=== PATIENT | male | born 1975 | race Caucasian/White ===

== ENCOUNTER 2020-02-24 13:51 | Emergency (ER) | payer MEDICAID ==
[~2020-02-24] VITALS: Ht 172.7 cm; Wt 66.0 kg
[2020-02-24 14:30] VITALS: BP 108/63
[2020-02-24] MEDS ORDERED: HYDROCODONE/ACETAMINOPHEN 5/325MG TABLET PO ONE (14:30)
== END 2020-02-24 17:32 | disposition home or self-care (01) ==
LOC: ER 13:51
DX: S42.492A Other displaced fracture of lower end of left humerus, initial encounter for closed fracture (principal); E78.00 Pure hypercholesterolemia, unspecified; W01.0XXA Fall on same level from slipping, tripping and stumbling without subsequent striking against object, initial encounter; Y93.9 Activity, unspecified; Y92.9 Unspecified place or not applicable
CPT/HCPCS: 29105; 70486; 73060; 73080; 73090; 99284

== ENCOUNTER 2020-04-07 21:30 | Inpatient (IN) | payer MEDICAID ==
[~2020-04-07] VITALS: Ht 182.9 cm; Wt 70.3 kg
[2020-04-07 23:01] LABS: MEAN CORPUSCULAR HEMOGLOBIN 19.9 pg (28.0-32.0); MEAN CORPUSCULAR VOLUME 65.5 fL (80.0-94.0); MEAN PLATELET VOLUME 8.2 fl (7.4-10.4); PLATELET 182 x1000/uL (130-400); RED BLOOD CELL COUNT 3.16 mill/uL (4.7-6.1); RED CELL DISTRIBUTION WIDTH 20.6 % (11.6-14.6)
[2020-04-07 23:07] LABS: CHLORIDE 103 mEq/L (98-107); HEMOGLOBIN. 6.3 g/dL (14.0-18.0)
[2020-04-07 23:08] LABS: HEMATOCRIT. 20.7 % (42.0-52.0)
[2020-04-07 23:10] LABS: PROTHROMBIN TIME 10.2 sec (9.6-11.0)
[2020-04-07] MEDS: OXYMETAZOLINE HCL NASAL SPRAY 15ML BOTHNSTRLS SCH (23:30)
[2020-04-08 00:07] LABS: PLATELET ESTIMATE NORMAL
[2020-04-08] MEDS ORDERED: SILVER NITRATE APPLICATOR STICK TOP ONE (03:45)
[2020-04-08] MEDS ORDERED: TRANEXAMIC ACID 1,000 MG/10 ML TP ONE (04:00)
[2020-04-08 05:43] LABS: HEMATOCRIT 23.2 % (42.0-52.0); HEMOGLOBIN 7.2 g/dL (14.0-18.0); MEAN CORPUSCULAR HEMOGLOBIN 21.4 pg (28.0-32.0); PLATELET 166 x1000/uL (130-400); RED BLOOD CELL COUNT 3.36 mill/uL (4.7-6.1); RED CELL DISTRIBUTION WIDTH 22.5 % (11.6-14.6)
[2020-04-08 12:15] LABS: HEMATOCRIT 25.6 % (42.0-52.0); HEMOGLOBIN 7.9 g/dL (14.0-18.0); MEAN CORPUSCULAR VOLUME 71.3 fL (80.0-94.0); PLATELET 150 x1000/uL (130-400); RED BLOOD CELL COUNT 3.58 mill/uL (4.7-6.1)
[2020-04-08] MEDS: TRANEXAMIC ACID 1,000 MG/10 ML TP ONE ×2 (14:19→14:39)
[2020-04-08 17:00] VITALS: BP 132/46
[2020-04-08] MEDS ORDERED: THIAMINE HCL 100MG TABLET PO SCH (19:30)
[2020-04-08] MEDS ORDERED: MAGNESIUM/ALUMINUM HYDROXIDE/SIMETHICONE 30ML UDC PO PRN (19:30)
[2020-04-08] MEDS ORDERED: ONDANSETRON HCL 4MG/2ML INJ IV PRN (19:30)
[2020-04-08] MEDS ORDERED: DOCUSATE SODIUM 100MG CAPSULE PO PRN (19:30)
[2020-04-08] MEDS ORDERED: ACETAMINOPHEN 650MG SUPP PR PRN (19:30)
[2020-04-08] MEDS ORDERED: ACETAMINOPHEN 325MG TABLET PO PRN (19:30)
[2020-04-08] MEDS ORDERED: GUAIFENESIN 200MG/10ML SUGAR FREE UDC PO PRN (19:30)
[2020-04-08] MEDS ORDERED: DIPHENHYDRAMINE 50MG/ML VIAL IV PRN (19:30)
[2020-04-08] MEDS ORDERED: NA PHOS,M-B/NA PHOS,DI-BA ENEMA 118ML PR PRN (19:30)
[2020-04-08] MEDS ORDERED: CLONIDINE 0.1MG TABLET PO PRN (19:30)
[2020-04-08] MEDS ORDERED: ACETAMINOPHEN 650MG/20.3ML UDC GT PRN ×2 (19:30)
[2020-04-08 20:00] VITALS: BP 129/71
[2020-04-08] MEDS: CHLORDIAZEPOXIDE 25MG CAPSULE PO SCH (22:59)
[2020-04-08] MEDS: OXYMETAZOLINE HCL NASAL SPRAY 15ML BOTHNSTRLS SCH (23:59)
[2020-04-09] VITALS: BP 111/65
[2020-04-09 01:25] LABS: *BARBITURATES SCREEN URINE NEGATIVE (NEGATIVE)
[2020-04-09 01:27] LABS: *AMPHETAMINES SCREEN URINE NEGATIVE (NEGATIVE); *BENZODIAZEPINES SCREEN URINE NEGATIVE (NEGATIVE); *COCAINE SCREEN URINE NEGATIVE (NEGATIVE); CANNABINOID URINE SCREEN NEGATIVE (NEGATIVE); METHADONE URINE SCREEN NEGATIVE (NEGATIVE); PHENCYCLIDINE URINE SCREEN NEGATIVE (NEGATIVE)
[2020-04-09 01:37] LABS: OPIATES URINE SCREEN NEGATIVE (NEGATIVE)
[2020-04-09 02:16] LABS: TOTAL IRON BINDING CAPACITY 489 ug/dL (250-450)
[2020-04-09 02:29] LABS: FOLIC ACID (FOLATE) SERUM >20 ng/mL ng/mL (>5.38)
[2020-04-09 02:41] LABS: VITAMIN B12 SERUM 362 pg/mL (211-911)
[2020-04-09 04:00] VITALS: BP 128/75
[2020-04-09] MEDS: CHLORDIAZEPOXIDE 25MG CAPSULE PO SCH (06:02)
[2020-04-09 06:04] LABS: CHLORIDE 105 mEq/L (98-107)
[2020-04-09 06:15] LABS: EOSINOPHILS % 0.7 % (0.0-5.0); HEMATOCRIT. 28.2 % (42.0-52.0); HEMOGLOBIN. 8.8 g/dL (14.0-18.0); LYMPHOCYTES % 36.3 % (20.0-50.0); MEAN CORPUSCULAR HEMOGLOBIN 22.4 pg (28.0-32.0); MEAN CORPUSCULAR VOLUME 71.9 fL (80.0-94.0); MEAN PLATELET VOLUME 8.6 fl (7.4-10.4); MONOCYTES % 10.1 % (2.0-8.0); NEUTROPHILS % 51.9 % (40.0-76.0); PLATELET 159 x1000/uL (130-400); RED BLOOD CELL COUNT 3.92 mill/uL (4.7-6.1); RED CELL DISTRIBUTION WIDTH 23.8 % (11.6-14.6)
[2020-04-09 06:19] LABS: LDL CHOLESTEROL 86 mg/dL (5-100)
[2020-04-09 06:21] LABS: HDL CHOLESTEROL 53 mg/dL (40-59)
[2020-04-09] MEDS ORDERED: FOLIC ACID 1MG TABLET PO SCH (09:00)
[2020-04-09 13:36] LABS: PLATELET ESTIMATE NORMAL
== END 2020-04-09 07:40 | disposition left against medical advice (07) | DRG 98 ==
LOC: ER 21:30 → ENRESERV 04-08 10:20 → CANRESERV 04-08 10:20 → ENRESERV 04-08 11:33 → CANRESERV 04-08 11:33 → 6EST 04-08 13:10 → EDBEDREQ 04-08 13:23 → EDBEDREQTM 04-08 13:23 → EDBEDREQSVC 04-08 13:23 → ENRESERV 04-08 14:13
PROVIDERS: ADMIT Family Medicine; ATTEND Family Medicine
PROC: 093K7ZZ Control Bleeding in Nasal Mucosa and Soft Tissue, Via Natural or Artificial Opening (ICD-10-PCS; principal; 2020-04-08)
PROC: 30233N1 Transfusion of Nonautologous Red Blood Cells into Peripheral Vein, Percutaneous Approach (ICD-10-PCS; 2020-04-08)
DX: R04.0 Epistaxis (principal); D64.9 Anemia, unspecified; Z53.29 Procedure and treatment not carried out because of patient's decision for other reasons; E44.1 Mild protein-calorie malnutrition
CPT/HCPCS: 36415; 80048; 80053; 80061; 80305; 82607; 82746; 83540; 83550; 85025; 85027; 86850; 86900; 86920; 99285; P9016